=== PATIENT | male | born 1940 | race Caucasian/White ===

== ENCOUNTER → 2021-11-30 10:18 | Outpatient (CLI) | payer MEDICARE, OTHER, SELFPAY ==
--- NOTE | 2021-11-30 10:21 | DI.RAD.S_ITS ---
PROCEDURE: XR LUMBAR SPINE 2-3V INDICATIONS: chronic low back pain with right leg radiation TECHNIQUE: 3 views of the lumbar spine were acquired. COMPARISON: None. FINDINGS: Bones: 5 bmx-hpb-odlqujw vertebrae are present. There is mild rightward curvature of thoracolumbar spine centered at L2 level. Degenerative endplate changes and loss of disc height throughout lumbar spine is seen.. No vertebral body compression fractures. No suspicious bony lesions. Soft tissues: Overlying bowel gas pattern is normal. No suspicious soft tissue calcifications. IMPRESSION: Degenerative disc disease throughout lumbar spine. Mild scoliosis as above. No acute compression fracture or spondylolisthesis. Dictated by: Solis Mullins M.D. on 11/30/2021 at 12:47 Approved by: Solis Mullins M.D. on 11/30/2021 at 12:50
[2021-11-30 11:56] LABS: Creatinine Urine Random 46.5 mg/dL
[2021-11-30 12:01] LABS: Microalbumi Creatinin Ratio Ur 12.9 ug/mg CR (<30); Microalbumin Urine Random 0.6 mg/dL (0-1.6)
[2021-11-30 12:07] LABS: Add Manual Diff / Slide Review NO; Basophils Absolute Auto 0 /uL (0-100); Basophils Percent Auto 0.6 % (0-2); Eosinophils Absolute Auto 100 /uL (0-450); Eosinophils Percent Auto 1.4 % (2-4); Hematocrit 43.7 % (41-53); Hemoglobin 14.9 g/dL (13.5-17.5); Lymphocytes Absolute Auto 900 /uL (1100-4500); Lymphocytes Percent Auto 20.3 % (25-40); Mean Corpuscular HGB Conc 34.1 % (30-36); Mean Corpuscular Hemoglobin 30.6 PG (26-34); Mean Corpuscular Volume 89.6 fL (80-100); Monocytes Absolute Auto 300 /uL (0-900); Monocytes Percent Auto 7.4 % (3-14); Neutrophils Absolute Auto 3200 /uL (1500-7000); Neutrophils Percent Auto 70.3 % (50-75); Platelet Count 218 X10^3/uL (150-400); Red Blood Cell Count 4.88 X10^6/uL (4.5-5.9); Red Cell Distribution Width 13.8 % (11.6-14.8); White Blood Cell Count 4.6 X10^3/uL (4.5-11.0)
[2021-11-30 12:26] LABS: Alanine Aminotransferase 21 IU/L (<50); Albumin 4.3 g/dL (3.5-5.0); Albumin Globulin Ratio 1.7 (1.0-2.8); Alkaline Phosphatase 51 U/L (38-126); Aspartate Aminotransferase 27 IU/L (17-59); BUN Creatinine Ratio 16.5 (6-22); Bilirubin Total 0.7 mg/dL (0.2-1.3); Blood Urea Nitrogen 16 mg/dL (9-20); Calcium 8.9 mg/dL (8.4-10.2); Carbon Dioxide 29 mmol/L (22-32); Chloride 104 mmol/L (98-107); Cholesterol 141 mg/dL (140-199); Estimated Glomerular Filt Rate > 60 mL/min (>60); Globulin 2.6 g/dL (1.7-4.1); Glucose 89 mg/dL (80-110); HDL Cholesterol 73 mg/dL (40-60); HEMOLYSIS < 15 (0-50); LDL Cholesterol Calculated 58 mg/dL (<100); Potassium 4.2 mmol/L (3.4-5.1); Sodium 138 mmol/L (137-145); Total Protein 6.9 g/dL (6.3-8.2); Triglycerides 48 mg/dL (35-150)
[2021-11-30 12:54] LABS: Prostate Specific Antigen Scrn 0.763 ng/mL (0.1-4.0)
[2021-11-30 12:55] LABS: TSH w/ Reflex to FT4 2.06 uIU/mL (0.47-4.68)
== END ==
PROVIDERS: PCP Family Medicine; Referring Provider Family Medicine; Visit Provider Family Medicine
DX: I10 Essential (primary) hypertension (principal); Z12.5 Encounter for screening for malignant neoplasm of prostate; F41.9 Anxiety disorder, unspecified; G89.29 Other chronic pain; M54.9 Dorsalgia, unspecified; N40.1 Benign prostatic hyperplasia with lower urinary tract symptoms; M51.36 Other intervertebral disc degeneration, lumbar region; M41.9 Scoliosis, unspecified
CPT/HCPCS: 36415; 72100; 80053; 80061; 82043; 82570; 84443; 85025; G0103

== ENCOUNTER → 2023-01-10 08:23 | Outpatient (CLI) | payer MEDICARE, OTHER, SELFPAY ==
--- NOTE | 2023-01-10 08:26 | DI.CT.S_ITS ---
PROCEDURE: CT ANGIO HEAD AND NECK INDICATIONS: possible retinal bleed TECHNIQUE: Pre-contrast 4.5 mm thick sections acquired from the foramen magnum to the vertex. After the administration of intravenous contrast, 1 mm thick sections acquired from the aortic arch through the [place]. Post-contrast 4.5 mm thick sections then re-acquired from the foramen magnum to the vertex. 3-dimensional gyriifi-qigoiyvde-grrdjtelvq (MIP) and/or volume rendering reformats were acquired of the central intracranial vasculature and neck separately. For radiation dose reduction, the following was used: automated exposure control, adjustment of mA and/or kV according to patient size. COMPARISON: None. FINDINGS: Image quality: Mild streak artifact can be seen through the skull base. BRAIN: CSF spaces: Ventricles are normal in size and shape. Basal cisterns are patent. No extra-axial fluid collections. Brain: No midline shift. No intracranial bleeds or masses. Díaz-white matter interface appears intact. Skull and face: In this patient with this given history, scrutiny is given to the orbits. No marques orbital abnormality can be seen on these images. No findings of orbital AVM can be seen. Calvarium and facial bones appear intact, without suspicious lesions. Sinuses: Sinuses and mastoids are clear. HEAD CT ANGIOGRAPHY: Anterior circulation: Intracranial internal carotid arteries are normal in size and flow. The flow within the paired anterior cerebral arteries is normal and symmetric. The flow within the middle cerebral arteries is normal and symmetric. The anterior communicating artery is seen. No aneurysms are seen. Posterior circulation: Visualized portions of the vertebral arteries demonstrate normal caliber, and join to form a normal appearing basilar artery. Flow within the posterior cerebral arteries is normal and symmetric. No aneurysms are seen. NECK CT ANGIOGRAPHY: Carotid system: The great vessels demonstrate a conventional anatomy as they arise from the aortic arch. The origins of the common carotid arteries appear patent. The common carotid arteries demonstrate normal caliber and courses. The bifurcation regions are both widely patent. The internal carotid arteries demonstrate normal calibers and courses. Posterior circulation: The origins of the vertebral arteries both appear widely patent. The more superior extracranial portions of both vertebral arteries also demonstrate normal courses and calibers. They join to form a normal appearing basilar artery. Soft tissues: Visualized neck soft tissues demonstrate no suspicious abnormalities. Bones: No suspicious bony lesions. Visualized cervical spine appears normally aligned. Moderate lower cervical spine degenerative changes are seen. IMPRESSION: No imaging explanation is found for this patient's presenting symptoms. Any quantitative measurements of stenosis were performed using NASCET criteria. Dictated by: Ranjeet Angel M.D. on 01/10/2023 at 10:06 Approved by: Ranjeet Angel M.D. on 01/10/2023 at 10:08
[2023-01-10 09:31] LABS: Add Manual Diff / Slide Review NO; Basophils Absolute Auto 0 /uL (0-100); Basophils Percent Auto 0.5 % (0-2); Eosinophils Absolute Auto 100 /uL (0-450); Eosinophils Percent Auto 2.3 % (2-4); Hemoglobin 14.4 g/dL (13.5-17.5); Lymphocytes Absolute Auto 900 /uL (1100-4500); Lymphocytes Percent Auto 17.6 % (25-40); Mean Corpuscular HGB Conc 34.3 % (30-36); Mean Corpuscular Hemoglobin 30.6 PG (26-34); Mean Corpuscular Volume 89.3 fL (80-100); Monocytes Absolute Auto 400 /uL (0-900); Monocytes Percent Auto 8.3 % (3-14); Neutrophils Absolute Auto 3700 /uL (1500-7000); Neutrophils Percent Auto 71.3 % (50-75); Platelet Count 217 X10^3/uL (150-400); Red Blood Cell Count 4.71 X10^6/uL (4.5-5.9); Red Cell Distribution Width 13.8 % (11.6-14.8); White Blood Cell Count 5.2 X10^3/uL (4.5-11.0)
[2023-01-10 09:36] LABS: Alanine Aminotransferase 26 IU/L (<50); Albumin 4.1 g/dL (3.5-5.0); Albumin Globulin Ratio 1.5 (1.0-2.8); Alkaline Phosphatase 49 U/L (38-126); Aspartate Aminotransferase 28 IU/L (17-59); BUN Creatinine Ratio 21.3 (6-22); Bilirubin Total 0.6 mg/dL (0.2-1.3); Blood Urea Nitrogen 20 mg/dL (9-20); Calcium 9.1 mg/dL (8.4-10.2); Carbon Dioxide 30 mmol/L (22-32); Chloride 102 mmol/L (98-107); Cholesterol 141 mg/dL (140-199); Estimated Glomerular Filt Rate > 60 mL/min (>60); Globulin 2.7 g/dL (1.7-4.1); Glucose 89 mg/dL (80-110); HDL Cholesterol 69 mg/dL (40-60); HEMOLYSIS < 15 (0-50); LDL Cholesterol Calculated 62 mg/dL (<100); Potassium 4.3 mmol/L (3.4-5.1); Sodium 138 mmol/L (137-145); Total Protein 6.8 g/dL (6.3-8.2); Triglycerides 51 mg/dL (35-150)
[2023-01-10 10:06] LABS: Prostate Specific Antigen Scrn 1.06 ng/mL (0.1-4.0)
== END ==
PROVIDERS: PCP Family Medicine; Referring Provider Family Medicine; Visit Provider Family Medicine
DX: H35.60 Retinal hemorrhage, unspecified eye (principal); H35.30 Unspecified macular degeneration; I10 Essential (primary) hypertension; N40.0 Benign prostatic hyperplasia without lower urinary tract symptoms; Z12.5 Encounter for screening for malignant neoplasm of prostate; F41.9 Anxiety disorder, unspecified; M54.9 Dorsalgia, unspecified
CPT/HCPCS: 36415; 70496; 70498; 80053; 80061; 85025; G0103; Q9967

== ENCOUNTER → 2023-08-10 09:29 | Outpatient (CLI) | payer MEDICARE, OTHER, SELFPAY ==
[2023-08-10 10:42] LABS: Add Manual Diff / Slide Review NO; Basophils Absolute Auto 0 /uL (0-100); Basophils Percent Auto 0.4 % (0-2); Eosinophils Absolute Auto 100 /uL (0-450); Eosinophils Percent Auto 1.8 % (2-4); Hemoglobin 12.9 g/dL (13.5-17.5); Lymphocytes Absolute Auto 700 /uL (1100-4500); Lymphocytes Percent Auto 10.3 % (25-40); Mean Corpuscular HGB Conc 33.9 % (30-36); Mean Corpuscular Hemoglobin 29.8 PG (26-34); Mean Corpuscular Volume 87.8 fL (80-100); Monocytes Absolute Auto 800 /uL (0-900); Monocytes Percent Auto 11.6 % (3-14); Neutrophils Absolute Auto 5500 /uL (1500-7000); Neutrophils Percent Auto 75.9 % (50-75); Platelet Count 372 X10^3/uL (150-400); Red Blood Cell Count 4.33 X10^6/uL (4.5-5.9); Red Cell Distribution Width 13.5 % (11.6-14.8); White Blood Cell Count 7.2 X10^3/uL (4.5-11.0)
[2023-08-10 10:50] LABS: Alanine Aminotransferase 62 IU/L (<50); Albumin 3.2 g/dL (3.5-5.0); Alkaline Phosphatase 79 U/L (38-126); Aspartate Aminotransferase 63 IU/L (17-59); BUN Creatinine Ratio 18.1 (6-22); Bilirubin Total 0.6 mg/dL (0.2-1.3); Blood Urea Nitrogen 17 mg/dL (9-20); Calcium 8.7 mg/dL (8.4-10.2); Carbon Dioxide 29 mmol/L (22-32); Chloride 102 mmol/L (98-107); Estimated Glomerular Filt Rate > 60 mL/min (>60); Globulin 3.1 g/dL (1.7-4.1); Glucose 97 mg/dL (80-110); HEMOLYSIS < 15 (0-50); Lipase 49 U/L (23-300); Potassium 4.3 mmol/L (3.4-5.1); Sodium 139 mmol/L (137-145); Total Protein 6.3 g/dL (6.3-8.2)
[2023-08-10 11:19] LABS: TSH w/ Reflex to FT4 1.78 uIU/mL (0.47-4.68)
[2023-08-10 11:24] LABS: Erythrocyte Sedimentation Rate 63 MM/HR (0-15)
[2023-08-15 18:21] LABS: CCP Antibodies IgG/IgA 37 units (0-19)
[2023-08-15 18:21] LABS: ANA Screen, IFA Negative (.)
== END ==
PROVIDERS: PCP Family Medicine; Referring Provider Family Medicine; Visit Provider Family Medicine
DX: M19.011 Primary osteoarthritis, right shoulder (principal); M54.2 Cervicalgia; F41.9 Anxiety disorder, unspecified; G89.29 Other chronic pain; I10 Essential (primary) hypertension; M54.9 Dorsalgia, unspecified; R60.0 Localized edema; D64.9 Anemia, unspecified; R74.8 Abnormal levels of other serum enzymes
CPT/HCPCS: 36415; 80053; 83690; 84443; 85025; 85651; 86038; 86140; 86200; 86430

== ENCOUNTER → 2023-08-17 11:15 | Outpatient (CLI) | payer MEDICARE, OTHER, SELFPAY ==
[2023-08-17 11:44] LABS: Add Manual Diff / Slide Review NO; Basophils Absolute Auto 100 /uL (0-100); Basophils Percent Auto 0.9 % (0-2); Eosinophils Absolute Auto 100 /uL (0-450); Eosinophils Percent Auto 1.3 % (2-4); Hematocrit 36.4 % (41-53); Hemoglobin 12.3 g/dL (13.5-17.5); Lymphocytes Absolute Auto 800 /uL (1100-4500); Lymphocytes Percent Auto 9.1 % (25-40); Mean Corpuscular HGB Conc 33.7 % (30-36); Mean Corpuscular Hemoglobin 29.1 PG (26-34); Mean Corpuscular Volume 86.2 fL (80-100); Monocytes Absolute Auto 1000 /uL (0-900); Monocytes Percent Auto 10.8 % (3-14); Neutrophils Absolute Auto 7100 /uL (1500-7000); Neutrophils Percent Auto 77.9 % (50-75); Platelet Count 434 X10^3/uL (150-400); Red Blood Cell Count 4.22 X10^6/uL (4.5-5.9); Red Cell Distribution Width 13.9 % (11.6-14.8); White Blood Cell Count 9.1 X10^3/uL (4.5-11.0)
[2023-08-17 11:48] LABS: Alanine Aminotransferase 196 IU/L (<50); Albumin 3.3 g/dL (3.5-5.0); Albumin Globulin Ratio 0.9 (1.0-2.8); Alkaline Phosphatase 126 U/L (38-126); Aspartate Aminotransferase 155 IU/L (17-59); BUN Creatinine Ratio 27.6 (6-22); Bilirubin Total 0.6 mg/dL (0.2-1.3); Blood Urea Nitrogen 24 mg/dL (9-20); Calcium 8.9 mg/dL (8.4-10.2); Carbon Dioxide 26 mmol/L (22-32); Chloride 105 mmol/L (98-107); Estimated Glomerular Filt Rate > 60 mL/min (>60); Globulin 3.6 g/dL (1.7-4.1); Glucose 104 mg/dL (80-110); HEMOLYSIS < 15 (0-50); Lactate Dehydrogenase 215 U/L (120-246); Potassium 4.2 mmol/L (3.4-5.1); Sodium 139 mmol/L (137-145); Total Protein 6.9 g/dL (6.3-8.2)
[2023-08-17 12:02] LABS: C-Reactive Protein Quant 19.5 mg/dL (<1.0)
[2023-08-17 12:11] LABS: Erythrocyte Sedimentation Rate 55 MM/HR (0-15)
[2023-08-17 14:51] LABS: Ferritin 522 ng/mL (18-464)
== END ==
LOC: RAD 11:16 → LAB 11:22
PROVIDERS: PCP Family Medicine; Referring Provider Family Medicine; Visit Provider Family Medicine
DX: I10 Essential (primary) hypertension (principal); R74.8 Abnormal levels of other serum enzymes; R60.0 Localized edema; R26.89 Other abnormalities of gait and mobility; G45.9 Transient cerebral ischemic attack, unspecified; D64.9 Anemia, unspecified; M06.9 Rheumatoid arthritis, unspecified
CPT/HCPCS: 36415; 80053; 82728; 83615; 85025; 85651; 86140

== ENCOUNTER → 2023-08-17 14:11 | Outpatient (CLI) | payer MEDICARE, OTHER, SELFPAY ==
--- NOTE | 2023-08-17 14:14 | DI.CT.S_ITS ---
PROCEDURE: CT ABDOMEN WWO PELVIS W INDICATIONS: elevated liver enzymes, inflammatory markers TECHNIQUE: After the administration of oral contrast, 5 mm thick sections acquired from the diaphragms to the iliac crests. After the administration of intravenous contrast, 5 mm thick sections acquired from the diaphragms to the symphysis. 5 mm thick coronal and sagittal reformats were acquired. For radiation dose reduction, the following was used: automated exposure control, adjustment of mA and/or kV according to patient size. COMPARISON: None. FINDINGS: Image quality: Diagnostic. Lower Chest: No significant findings. ABDOMEN: Liver: No solid mass. Diffuse fatty infiltration of the liver. Gallbladder: No radiopaque gallstones or wall thickening. Biliary ducts: No biliary dilation. Pancreas: No ductal dilation. Spleen: Size is within normal limits. Adrenal Glands: No adrenal nodules. Kidneys and Ureters: No hydronephrosis. No solid mass. No complex renal cystic lesion which requires follow up. Large, exophytic, simple left renal cyst which requires no additional imaging. Stomach and Bowel: Small hiatal hernia. Normal colonic caliber, without significant wall thickening. Colonic diverticuli. Mild inflammatory stranding noted adjacent to diverticuli in the distal left colon. The appendix is normal. Peritoneum: No abnormal intraperitoneal fluid. No free air. Ventral Wall: No significant ventral hernia. Abdominal Nodes: No retroperitoneal or mesenteric adenopathy by size criteria. Vessels: Aorta and inferior vena cava are normal in size. Scattered atherosclerotic calcifications involving the abdominal and pelvic vasculature. PELVIS: Pelvic Organs: Unremarkable. Bladder: No bladder wall thickening, accounting for underdistention. Pelvic Nodes: No enlarged lymph nodes. Miscellaneous: No inguinal hernias are seen. Bones: No aggressive osseous abnormality. Spine degenerative disc disease and facet arthropathy. IMPRESSION: No hepatic mass. Hepatic steatosis. Mild, distal left colon uncomplicated diverticulitis. Dictated by: Bettina Davies MD, PhD on 08/17/2023 at 14:53 Approved by: Bettina Davies MD, PhD on 08/17/2023 at 15:00
[2023-08-17 15:52] LABS: INR 1.2 (0.9-1.3)
[2023-08-17 15:58] LABS: HEMOLYSIS < 15 (0-50); Iron 35 ug/dL (49-181)
[2023-08-17 16:10] LABS: Percent Iron Saturation 25 % (20-50); Total Iron Binding Capacity 141 ug/dL (261-462); Transferrin 108 mg/dL (206-381)
[2023-08-17 18:40] LABS: Hepatitis B Surface Antigen NEGATIVE s/c (NEGATIVE)
[2023-08-17 18:58] LABS: Hep C Virus Ab w/Reflex Quant NEGATIVE s/c (NEGATIVE)
[2023-08-18 04:09] LABS: Ceruloplasmin 31.7 mg/dL (16.0-31.0)
[2023-08-18 08:08] LABS: Alpha Fetoprotein 1.8 ng/mL (0.0-6.4)
[2023-08-19 05:59] LABS: Hepatitis B Surf Ab Qualitativ Non Reactive (.)
[2023-08-19 18:48] LABS: Smooth Muscle Antibody 13 Units (0-19)
== END ==
PROVIDERS: PCP Family Medicine; Referring Provider Family Medicine; Visit Provider Family Medicine
DX: K57.32 Diverticulitis of large intestine without perforation or abscess without bleeding (principal); K76.0 Fatty (change of) liver, not elsewhere classified; K44.9 Diaphragmatic hernia without obstruction or gangrene; R74.8 Abnormal levels of other serum enzymes; G45.9 Transient cerebral ischemic attack, unspecified; R60.0 Localized edema; M06.9 Rheumatoid arthritis, unspecified; D64.9 Anemia, unspecified; I10 Essential (primary) hypertension; R26.89 Other abnormalities of gait and mobility
CPT/HCPCS: 36415; 74178; 80053; 82105; 82390; 82728; 83540; 83550; 83615; 85025; 85610; 85651; 86140; 86706; 86803; 87340

== ENCOUNTER 2023-08-17 17:33 | Emergency (ER) | payer MEDICARE, OTHER, SELFPAY ==
[2023-08-17 18:07] VITALS: BP 197/80; PULSE 76; RESP 20; TEMP 37; O2SAT 95; BMI 25.4
--- NOTE | 2023-08-17 19:15 | ED_ITS ---
HPI - Recheck/Abnormal Lab/Rx General Chief Complaint: Recheck/Abnormal Lab/Rx Stated Complaint: sent by Dr Reid Time Seen by Provider: 08/17/23 19:08 Source: patient Mode of arrival: Ambulatory History of Present Illness HPI narrative: You 3-year-old gentleman with arthritis pain, anemia in the middle of rheumatologic as well as hematologic workup. LFTs have been increasing slightly in CT scan of the abdomen was ordered today. He was instructed by his physician's office to come to the emergency department for further evaluation. Has no specific complaints or concerns at this time. He states that his lower extremity edema has been intermittently painful he is pleased with current outpatient plan. He complains of no abdominal pain, diarrhea or bloody stool. He notes no fevers Related Data Home Medications Medication Instructions Recorded Confirmed aspirin 81 mg tablet,delayed 81 mg PO DAILY 12/13/21 08/17/23 release (Adult Aspirin Regimen) calcium carbonate 500 mg calcium 500 mg PO DAILY 12/13/21 08/17/23 (1,250 mg) chewable tablet (Calcium 500) cholecalciferol (vitamin D3) 25 25 mcg PO DAILY 12/13/21 08/17/23 mcg (1,000 unit) tablet esomeprazole magnesium 20 mg 20 mg PO DAILY 12/13/21 08/17/23 capsule,delayed release zinc 50 mg tablet 50 mg PO DAILY 12/13/21 08/17/23 coenzyme [id number] E 100 mg-100 cap PO 01/31/22 08/17/23 unit capsule vit cap PO 12/14/22 08/17/23 C,E,zinc,Bs-unnkf-1-lutein-zeaxanthin 250 mg-2.5 mg-0.5 mg capsule Previous Rx's Medication Instructions Recorded lidocaine 5 % topical patch 1 patch topical DAILY #15 ea 08/04/22 (Lidoderm) simvastatin 40 mg tablet 40 mg PO BEDTIME #90 tabs 11/03/22 furosemide 20 mg tablet (Lasix) 20 mg PO DAILY #60 tabs 08/17/23 potassium chloride 20 mEq oral 20 meq PO DAILY #100 ea 08/17/23 packet prednisone 20 mg tablet 20 mg PO DAILY #60 tabs 08/17/23 Allergies Allergy/AdvReac Type Severity Reaction Status Date / Time No Known Drug Allergies Allergy Verified 08/17/23 13:09 Review of Systems Review of Systems Narrative: Pertinent positive and negative findings as per HPI Patient History Medical History Anemia Elevated liver enzymes Gout (~2016) Allergies (~1999) Depression (~2013) Migraines Shoulder pain (~2005) Positive PPD Mumps Measles Chicken pox Cataracts, bilateral (~2015) Gynecomastia Sleep disorder Chronic back pain TIA (transient ischemic attack) (~2004) Anxiety Hypertension BPH (benign prostatic hyperplasia) Surgical History Anesthesia History of cataract removal with insertion of prosthetic lens (~2016) History of colonoscopy (~2016) Family History Father Stroke Mother Cancer Social History Smoking Status: Never smoker Smoking Status: Never smoker Exam Initial Vital Signs Initial Vital Signs: Vital Signs Temperature 98.6 F 08/17/23 18:07 Pulse Rate 76 08/17/23 18:07 Respiratory Rate 20 08/17/23 18:07 Blood Pressure 197/80 H 08/17/23 18:07 Pulse Oximetry 95 08/17/23 18:07 Oxygen Delivery Method Room Air 08/17/23 18:07 General: Healthy appearing, in no acute distress. Able to give a complete and coherent history. Well-nourished well-developed HEENT: Moist mucous membranes, normal sclera with reactive pupils, Respiratory: Lungs are clear to auscultation, no wheezing no rales no rhonchi. Full and symmetrical air movement Cardiac: Regular rate and rhythm no murmurs no bruits Abdomen: Soft, no hepatomegaly, nontender, and specifically no tenderness in the left lower quadrant to suggest developing diverticulitis. He has no flank pain Neurologic: Grossly neurologically intact with no obvious asymmetries or abnormalities Extremities: No trauma, bilateral lower extremity edema with chronic venous stasis changes Psych: Cooperative, appropriate insight and affect Course Vital Signs Vital signs: Vital Signs - 8 hr 08/17/23 18:07 Temperature 98.6 F Pulse Rate 76 Respiratory Rate 20 Blood Pressure 197/80 H Pulse Oximetry 95 Oxygen Delivery Method Room Air MDM - Recheck/Abnormal Lab/Rx Imaging Data CT scan - abdomen/pelvis: Radiologist's Impression: PROCEDURE: CT ABDOMEN WWO PELVIS W INDICATIONS: elevated liver enzymes, inflammatory markers TECHNIQUE: After the administration of oral contrast, 5 mm thick sections acquired from the diaphragms to the iliac crests. After the administration of intravenous contrast, 5 mm thick sections acquired from the diaphragms to the symphysis. 5 mm thick coronal and sagittal reformats were acquired. For radiation dose reduction, the following was used: automated exposure control, adjustment of mA and/or kV according to patient size. COMPARISON: None. FINDINGS: Image quality: Diagnostic. Lower Chest: No significant findings. ABDOMEN: Liver: No solid mass. Diffuse fatty infiltration of the liver. Gallbladder: No radiopaque gallstones or wall thickening. Biliary ducts: No biliary dilation. Pancreas: No ductal dilation. Spleen: Size is within normal limits. Adrenal Glands: No adrenal nodules. Kidneys and Ureters: No hydronephrosis. No solid mass. No complex renal cystic lesion which requires follow up. Large, exophytic, simple left renal cyst which requires no additional imaging. Stomach and Bowel: Small hiatal hernia. Normal colonic caliber, without significant wall thickening. Colonic diverticuli. Mild inflammatory stranding noted adjacent to diverticuli in the distal left colon. The appendix is normal. Peritoneum: No abnormal intraperitoneal fluid. No free air. Ventral Wall: No significant ventral hernia. Abdominal Nodes: No retroperitoneal or mesenteric adenopathy by size criteria. Vessels: Aorta and inferior vena cava are normal in size. Scattered atherosclerotic calcifications involving the abdominal and pelvic vasculature. PELVIS: Pelvic Organs: Unremarkable. Bladder: No bladder wall thickening, accounting for underdistention. Pelvic Nodes: No enlarged lymph nodes. Miscellaneous: No inguinal hernias are seen. Bones: No aggressive osseous abnormality. Spine degenerative disc disease and facet arthropathy. IMPRESSION: No hepatic mass. Hepatic steatosis. Mild, distal left colon uncomplicated diverticulitis. Dictated by: Bettina Davies MD, PhD on 08/17/2023 at 14:53 MDM Narrative Medical decision making narrative: CC: Called by his nurse and told to come to the emergency department for abnormal lab work Complicating co-morbidities: Increasing lower extremity edema, workup for rheumatologic abnormalities, gradually increasing liver function studies, hypertension and anxiety Data collected from: patient, Social determinants of health that may influence the patients condition: Medical records reviewed: Primary care note from today quite detailed. Reviewed along with outpatient plan. According to this note it looks like the patient was referred to the emergency department for CT scan of the abdomen with concerns for liver failure Differential considered: Fatty liver, adverse medication reaction, acute phase reactants, congestive heart failure, intra-abdominal mass Exam documented above, pertinent findings include: 83-year-old gentleman who is delightful and somewhat puzzled as to why he is in the emergency department. His exam is entirely benign including abdominal exam. There is no tenderness whatsoever in his left lower quadrant. Lab Test results independently reviewed as above. Pertinent findings: CBC shows white count at 9.1, platelets slightly elevated at 434. Mild anemia with hemoglobin at 12.3 and 36.4, drifting down without evidence of acute bleeding. There was mention of a possible GI bleed while he was in [place] PTT is minimally elevated at 14 with normal INR Chemistries show normal renal function and electrolytes. Liver studies show slight increase over the last week ALT 63-155, ALT 262-196. Normal bilirubin and normal alk-phos and lactic dehydrogenase Iron TIBC and transferrin levels are all low. Ferritin level itself is elevated Imaging studies independently reviewed: CT scan suggests hepatic steatosis with no acute liver abnormalities. There is a suggestion of developing diverticulitis. There is absolutely no clinical sam elation with the diverticulitis concern on CT scan Treatments: Because patient has been in the emergency department he has not going to be able to supervisor opening and picking his prednisone or Lasix. We will give him his dose of prednisone this evening. He is also having significant pain after his exceptionally long day today. He has given a Percocet with for Percocet to take home for pain control. We did discuss constipation as a Side effect. Discussion: 83-year-old gentleman with increasing LFTs, essentially benign CT scan of the abdomen and benign physical exam aside from lower extremity edema. Has extensive and very appropriate outpatient workup already initiated and access to appropriate primary care. At this point there is no indication for hospitalization or additional imaging studies. Reassurance is given and patient is safe for discharge Discharge Plan Departure Patient Disposition: Home Clinical Impression: Elevated LFTs, Elevated blood pressure reading Activity Restrictions/Additional Instructions: Thank you for following instructions and coming in today for further evaluation Your lab work does show an increase in liver function studies however does not look like you have acute liver failure, acute kidney failure or any type of significant mass or infection. Your doctor has appropriate outpatient follow-up planned. He has given you a prescription for prednisone to help with the arthritis pain (this was the other P drug we did not consider;) as well as Lasix for the lower extremity edema. It is safe for you to go home and continue with outpatient follow-up plans. Prescriptions: No Action lidocaine [Lidoderm] 5 % adhesive patch,medicated 1 patch topical DAILY Qty: 15 0RF Rx Instructions: leave on most painful area for up to 12 hrs simvastatin 40 mg tablet 40 mg PO BEDTIME Qty: 90 3RF calcium carbonate [Calcium 500] 500 mg calcium (1,250 mg) tablet,chewable 500 mg PO DAILY esomeprazole magnesium 20 mg capsule,delayed release(DR/EC) 20 mg PO DAILY zinc 50 mg tablet 50 mg PO DAILY cholecalciferol (vitamin D3) 25 mcg (1,000 unit) tablet 25 mcg PO DAILY aspirin [Adult Aspirin Regimen] 81 mg tablet,delayed release (DR/EC) 81 mg PO DAILY prednisone 20 mg tablet 20 mg PO DAILY Qty: 60 0RF furosemide [Lasix] 20 mg tablet 20 mg PO DAILY Qty: 60 0RF potassium chloride 20 mEq packet 20 meq PO DAILY Qty: 100 0RF coenzyme [id number]-[id number] E 100-100 mg-unit capsule PO vit C,E,Zn,Nc-jiwhe8-iem-zeax 250-2.5-0.5 mg capsule PO Referrals: Anderson Reid MD [Primary Care Provider] - Stand Alone Forms: Patient Portal/API
[2023-08-17 20:04] VITALS: BP 233/105; PULSE 82; RESP 18; O2SAT 96
--- NOTE | 2023-08-17 20:05 | PC.NURSE ---
THREAD LASTER note: 2002 took patient's blood pressure, was elevated. VICKY ortega
--- NOTE | 2023-08-17 20:05 | PC.NURSE ---
Notified provider of elevated pressure at triage and repeat just now. Patient not on home medications for hypertension and had normotensive pressure at appt today.
[2023-08-17] MEDS: predniSONE 20 MG TABLET PO (20:16)
[2023-08-17] MEDS: OXYCODONE/ACETAMINOPHEN 5/325 TABLET 1 TAB PO (20:16)
[2023-08-17] MEDS: OXYCODONE/APAP 5/325 PREPACK 1 BOTTLE MISC (20:17)
[2023-08-17 20:45] VITALS: BP 148/88
== END 2023-08-17 20:45 | disposition home or self-care (01) ==
PROVIDERS: Emergency Provider Emergency Medicine; PCP Family Medicine
DX: R79.89 Other specified abnormal findings of blood chemistry (principal); R03.0 Elevated blood-pressure reading, without diagnosis of hypertension; K57.32 Diverticulitis of large intestine without perforation or abscess without bleeding; K76.0 Fatty (change of) liver, not elsewhere classified; K44.9 Diaphragmatic hernia without obstruction or gangrene; R74.8 Abnormal levels of other serum enzymes; R60.0 Localized edema; R26.89 Other abnormalities of gait and mobility; G45.9 Transient cerebral ischemic attack, unspecified; D64.9 Anemia, unspecified; M06.9 Rheumatoid arthritis, unspecified; I10 Essential (primary) hypertension
CPT/HCPCS: 36415; 74178; 80053; 82105; 82390; 82728; 83540; 83550; 83615; 85025; 85610; 85651; 86140; 86706; 86803; 87340; 99283

== ENCOUNTER → 2023-08-24 09:04 | Outpatient (CLI) | payer MEDICARE, OTHER, SELFPAY ==
[2023-08-24 09:51] LABS: Alanine Aminotransferase 74 IU/L (<50); Albumin 3.5 g/dL (3.5-5.0); Alkaline Phosphatase 93 U/L (38-126); Aspartate Aminotransferase 34 IU/L (17-59); BUN Creatinine Ratio 24.7 (6-22); Bilirubin Total 0.6 mg/dL (0.2-1.3); Blood Urea Nitrogen 24 mg/dL (9-20); Carbon Dioxide 29 mmol/L (22-32); Chloride 101 mmol/L (98-107); Estimated Glomerular Filt Rate > 60 mL/min (>60); Globulin 3.6 g/dL (1.7-4.1); Glucose 97 mg/dL (80-110); HEMOLYSIS < 15 (0-50); Sodium 137 mmol/L (137-145); Total Protein 7.1 g/dL (6.3-8.2)
== END ==
PROVIDERS: PCP Family Medicine; Referring Provider Family Medicine; Visit Provider Family Medicine
DX: R79.89 Other specified abnormal findings of blood chemistry (principal)
CPT/HCPCS: 36415; 80053

== ENCOUNTER → 2024-02-12 10:04 | Outpatient (CLI) | payer MEDICARE, OTHER, SELFPAY ==
[2024-02-12 11:04] LABS: Add Manual Diff / Slide Review NO; Basophils Absolute Auto 0 /uL (0-100); Basophils Percent Auto 0.7 % (0-2); Eosinophils Absolute Auto 400 /uL (0-450); Eosinophils Percent Auto 7.6 % (2-4); Hemoglobin 14.3 g/dL (13.5-17.5); Lymphocytes Absolute Auto 1100 /uL (1100-4500); Lymphocytes Percent Auto 20.9 % (25-40); Mean Corpuscular HGB Conc 33.4 % (30-36); Mean Corpuscular Hemoglobin 29.8 PG (26-34); Mean Corpuscular Volume 89.3 fL (80-100); Monocytes Absolute Auto 400 /uL (0-900); Monocytes Percent Auto 8.7 % (3-14); Neutrophils Absolute Auto 3200 /uL (1500-7000); Neutrophils Percent Auto 62.1 % (50-75); Platelet Count 221 X10^3/uL (150-400); Red Blood Cell Count 4.82 X10^6/uL (4.5-5.9); Red Cell Distribution Width 14.8 % (11.6-14.8); White Blood Cell Count 5.2 X10^3/uL (4.5-11.0)
[2024-02-12 11:29] LABS: Alanine Aminotransferase 26 IU/L (<50); Albumin 4.1 g/dL (3.5-5.0); Albumin Globulin Ratio 1.7 (1.0-2.8); Alkaline Phosphatase 55 U/L (38-126); Aspartate Aminotransferase 33 IU/L (17-59); BUN Creatinine Ratio 17.9 (6-22); Bilirubin Total 0.6 mg/dL (0.2-1.3); Blood Urea Nitrogen 19 mg/dL (9-20); Calcium 9.3 mg/dL (8.4-10.2); Carbon Dioxide 28 mmol/L (22-32); Chloride 106 mmol/L (98-107); Estimated Glomerular Filt Rate > 60 mL/min (>60); Globulin 2.4 g/dL (1.7-4.1); Glucose 86 mg/dL (80-110); HEMOLYSIS < 15 (0-50); Potassium 4.4 mmol/L (3.4-5.1); Sodium 140 mmol/L (137-145); Total Protein 6.5 g/dL (6.3-8.2); Triglycerides 46 mg/dL (35-150)
[2024-02-12 11:30] LABS: Cholesterol 149 mg/dL (140-199); HDL Cholesterol 77 mg/dL (40-60); LDL Cholesterol Calculated 63 mg/dL (<100)
[2024-02-12 11:46] LABS: TSH w/ Reflex to FT4 2.36 uIU/mL (0.47-4.68)
[2024-02-12 11:58] LABS: Prostate Specific Antigen Scrn 0.664 ng/mL (0.1-4.0)
[2024-02-13 03:39] LABS: Apolipoprotein B 62 mg/dL (<90)
== END ==
PROVIDERS: PCP Family Medicine; Referring Provider Family Medicine; Visit Provider Family Medicine
DX: D64.9 Anemia, unspecified (principal); R74.8 Abnormal levels of other serum enzymes; Z12.5 Encounter for screening for malignant neoplasm of prostate; I10 Essential (primary) hypertension; F41.9 Anxiety disorder, unspecified; M54.2 Cervicalgia; G89.29 Other chronic pain
CPT/HCPCS: 36415; 80053; 80061; 82172; 84443; 85025; G0103

== ENCOUNTER → 2024-02-26 10:39 | Outpatient (CLI) | payer MEDICARE, OTHER, SELFPAY ==
--- NOTE | 2024-02-26 | DI.RAD.S_ITS ---
PROCEDURE: XR DEXA AXIAL SKELETON INDICATIONS: Age-related osteoporosis without current pathological fractu COMPARISON: None. FINDINGS: Lumbar Spine: Bone mineral density 0.931 g/cm2, T score -1.1, osteopenia. Left Hip: Bone mineral density is 0.831 g/cm2, T score -0.9 normal. Left Femoral Neck: Bone mineral density 0.789 g/cm2, T score -0.5, normal. Right Hip: Bone mineral density 0.882 g/cm2, T score -0.5, normal. Right Femoral Neck: Bone mineral density is 0.780 g/cm2, T score -0.6, normal. Fracture Risk Calculation (when applicable): 10-year fracture risk of a major osteoporotic fracture 8.3 percent and of a hip fracture 3.2 percent. (T score greater or equal to -1.0 to: NORMAL) (T score from -1.1 to -2.4: OSTEOPENIA) (T score less than or equal to -2.5: OSTEOPOROSIS) IMPRESSION: Osteopenia involving the lumbar spine. Follow-up guidelines as follows: Osteoporosis: Consider a repeat DEXA and Vertebral Fracture Assessment (VFA) exam in 2 years or sooner if medically necessary, to reassess this patient's status. Osteopenia: Consider a repeat DEXA in 2-3 years to reassess this patient's status, or if there is a new clinical indication. Normal: Consider a repeat DEXA in 5 years or sooner, or if there is a new clinical indication. All treatment decisions require clinical judgment and consideration of individual patient factors, including patient preferences, comorbidities, previous drug use, risk factors not captured in the FRAX model (e.g., frailty, falls, vitamin D deficiency, increased bone turnover, interval significant decline in bone density ) and possible under- or over-estimation of fracture risk by FRAX. In addition, the NOF Guide recommends that FDA-approved medical therapies be considered in postmenopausal women and men age >= 50 years with a: * Hip or vertebral (clinical or morphometric) fracture * T-score of <=-2.5 at the spine or hip * Ten-year fracture probability by FRAX of >= 3% for hip fracture or >=20% for major osteoporotic fracture. People with diagnosed cases of osteoporosis or at high risk for fracture should have regular bone mineral density tests. For patients eligible for Medicare, routine testing is allowed once every 2 years. The testing frequency can be increased to one year for patients who have rapidly progressing disease, those who are receiving or discontinuing medical therapy to restore bone mass, or have additional risk factors. Dictated by: Manuel Zayas M.D. on 02/26/2024 at 13:00 Approved by: Manuel Zayas M.D. on 02/26/2024 at 13:06
== END ==
PROVIDERS: PCP Family Medicine; Referring Provider Family Medicine; Visit Provider Family Medicine
DX: M81.0 Age-related osteoporosis without current pathological fracture (principal)
CPT/HCPCS: 77080

== ENCOUNTER → 2024-10-10 10:23 | Outpatient (CLI) | payer MEDICARE, OTHER, SELFPAY ==
--- NOTE | 2024-10-10 16:49 | ST.SWALLOW ---
Visit Care Team Role Provider Type Anderson Reid MD Attending Provider Physician Primary Care Provider Referring Provider Specialty: Family Practice Address: [address] [place] [address], [facility] Email: [email or web address] Modified Barium Swallow Study SUPERVISOR BENZENE REFINING Modified Barium Swallow Study Start: 10/10/24 14:16 Freq: Status: Active Protocol: Document 10/10/24 14:42 LNK (Rec: 10/10/24 16:48 LNK Desktop) Modified Barium Swallow Study Total Time Visit Start Time 11:00 Visit Stop Time 11:45 Total Visit Minutes [address] Reid; Pt requested a copy of this report be sent to Dr. Palacio, ENT Setting Setting Outpatient Care Patient Information Identification Type Name,Date of Patient History Pt was seen for a Modified Barium Swallow Study with c/o difficulty swallowing pills and solid foods and frequent coughing when he eats/drinks. Pt described a lot of phlegm in his throat as well as drooling. Pt noted he has a TIA approximately 10 years ago , but that his swallowing difficulty is new. Pt has a PMH that includes hypertension , BPH, anxiety, memory concerns and GERD. He began taking Nexium 2 weeks ago. Pt also reported that he has lost his voice recently. He denies any head/neck injuries or surgeries and other neurological diagnoses Subjective Observations Pt was seated in the fluoroscopy chair with directions and procedures described for him. He indicated he understood and agreed to proceed. Patient Positioning Position View Lateral Imaging Lateral View Textures Administered Trials Presented Thin Liquid via Spoon (IDDSI 0 ),Thin Liquid via Cup (IDDSI 0 ),Extremely Thick Liquid via Spoon (IDDSI 4) Barium Tablet No The IDDSI Framework Protocol: IDDSI.1 Oral Impairment Source: The Modified Barium Swallow Impairment Profile (MBSImP??) Lip Closure No labial escape Tongue Control During Bolus Hold Cohesive bolus between tongue to palatal seal Bolus Preparation/Mastication Timely & efficient chewing & mashing Bolus Transport/Lingual Motion Delayed initiation of tongue motion Oral Residue Trace residue lining oral structures Location Tongue Initiation of Pharyngeal Swallow Bolus head in valleculae Additional Oral Impairment Observations *OME and DKS were observed to be WNL. *Dentition natural and in good hygiene - missing upper and lower posterior teeth *Mastication observed with rotary chew pattern. *Adequate bolus formation, control and AP transition. *Velopharyngeal closure was WNL. Pharyngeal Impairment Source: The Modified Barium Swallow Impairment Profile (MBSImP??) Soft Palate Elevation No bolus between soft palate & pharyngeal wall Laryngeal Elevation Part.sup.move.thyroid cart/ part.approx.arytenoids to epiglot.petiole Anterior Hyoid Excursion Partial anterior movement Epiglottic Movement Partial inversion Laryngeal Vestibular Closure None; wide column air/contrast in laryngeal vestibule Pharyngeal Stripping Wave Absent Pharyngoesophageal Segment Opening Minimal distension/minimal duration; marked obstruction of flow Tongue Base Retraction Narrow column of contrast/air betwn tongue base & post. pharyngeal wall Pharyngeal Residue Majority of contrast within/on pharyngeal structures Location Diffuse (>3 areas) Additional Pharyngeal Impairment *Reduced base of tongue Observations retraction strength *Reduced hyolaryngeal elevation and movement *Significantly enlarged pharyngeal space *No Pharyngeal wall striping - reducing bolus control *Inconsistent epiglottal inversion varying from no inversion to partial inversion *Weak seal of the laryngeal vestibule with frequent aspiration varying from marques aspiration to aspiration of residual secretions *Aspiration is silent with delayed, weak an inconsistent cough response *Cued cough did not clear aspiration from trachea *Aspiration x6 observed *UES appears to be restricted in opening duration/extension resulting in multiple, minimally effective attempts to clear bolus to esophagus Safe swallow strategies attempted: chin tuck, partially effective with small amounts of liquid, Chin tuck with head turn thin liquids -> aspiration, chin tuck with head turn Marquez thick -> no aspiration Effortful swallow -> marques aspiration majority of bolus *Semisolid trial resulted in diffuse residual (> 50% 0f bolus) throughout the pharynx requiring cued swallows x8 in order to clear residual to valeculla only. Secretions did flow ro vocal fold level Pt is high aspiration risk - Solid trial and barium tablet not attempted due to aspiration risk Diet recommendations include: small amounts thin liquids ( water only) following thorough oral cleaning (Sandhu Free Water Protocol). Liquidized foods (e.g., thicker creamy soups) Pt has referral to Dr Palacio, ENT A/P View The IDDSI Framework Protocol: IDDSI.1 A/P View Observations Additional A-P Observations AP view was not attempted as pt posed aspiration risk Clinical Impressions Dysphagia Type Pharyngeal Findings Severe pharyngeal phase dysphagia Please review additional pharyngeal impairment observations above Pt reports loss of voice - VF paresis/paralysis cannot be ruled out Patient Appropriate for Therapy Yes: base of tongue exercies Recommendations Diet Liquids Order Mildly Thick (IDDSI 2) Diet Order Liquidised (IDDSI 3) Medication Recommendation As Tolerated,Whole in Carrier, Crushed in Carrier Additional Dietary Needs Reminders to Use Strategies Aspiration Precautions Recommended Precautions Upright at 90 Degrees,Frequent Rest Periods,Small Bites/Sips Additional Precautions chin tuck with head turn Treatment Plan Therapy Recommendations Outpatient Speech Therapy,Base of Tongue Exercises Recommended Referrals GI Consult,ENT Consult
== END ==
PROVIDERS: PCP Family Medicine; Referring Provider Family Medicine; Visit Provider Family Medicine
DX: R13.10 Dysphagia, unspecified (principal)
CPT/HCPCS: 74230; 92611

== ENCOUNTER → 2024-11-27 12:33 | Outpatient (CLI) | payer MEDICARE, OTHER, SELFPAY ==
[2024-11-27 14:31] LABS: Add Manual Diff / Slide Review NO; Basophils Absolute Auto 100 /uL (0-100); Basophils Percent Auto 0.8 % (0-2); Eosinophils Absolute Auto 100 /uL (0-450); Hemoglobin 12.8 g/dL (13.5-17.5); Lymphocytes Absolute Auto 1300 /uL (1100-4500); Lymphocytes Percent Auto 19.6 % (25-40); Mean Corpuscular HGB Conc 33.6 % (30-36); Mean Corpuscular Volume 83.4 fL (80-100); Monocytes Absolute Auto 500 /uL (0-900); Monocytes Percent Auto 7.1 % (3-14); Neutrophils Absolute Auto 4500 /uL (1500-7000); Neutrophils Percent Auto 70.5 % (50-75); Platelet Count 286 X10^3/uL (150-400); Red Blood Cell Count 4.56 X10^6/uL (4.5-5.9); Red Cell Distribution Width 17.5 % (11.6-14.8); White Blood Cell Count 6.4 X10^3/uL (4.5-11.0)
== END ==
PROVIDERS: Family Provider Family Medicine; PCP Family Medicine; Referring Provider Nurse Practitioner Family; Visit Provider Nurse Practitioner Family
DX: K21.9 Gastro-esophageal reflux disease without esophagitis (principal)
CPT/HCPCS: 36415; 85025

== ENCOUNTER → 2025-01-28 11:17 | Outpatient (CLI) | payer MEDICARE, OTHER, SELFPAY ==
[2025-01-28 12:13] LABS: Add Manual Diff / Slide Review NO; Hematocrit 38.4 % (41-53); Hemoglobin 12.9 g/dL (13.5-17.5); Lymphocytes Absolute Auto 1000 /uL (1100-4500); Mean Corpuscular HGB Conc 33.7 % (30-36); Mean Corpuscular Hemoglobin 28.6 PG (26-34); Mean Corpuscular Volume 85.0 fL (80-100); Platelet Count 239 X10^3/uL (150-400)
[2025-01-28 12:28] LABS: Microalbumi Creatinin Ratio Ur 66.0 ug/mg CR (<30)
[2025-01-28 12:40] LABS: HEMOLYSIS < 15 (0-50); Iron 60 ug/dL (49-181)
[2025-01-28 12:47] LABS: Alanine Aminotransferase 19 IU/L (<50); Albumin 4.0 g/dL (3.5-5.0); Albumin Globulin Ratio 1.4 (1.0-2.8); Alkaline Phosphatase 78 U/L (38-126); Blood Urea Nitrogen 19 mg/dL (9-20); Calcium 9.0 mg/dL (8.4-10.2); Carbon Dioxide 26 mmol/L (22-32); Chloride 105 mmol/L (98-107); Cholesterol 135 mg/dL (140-199); Estimated Glomerular Filt Rate > 60 mL/min (>60); Globulin 2.9 g/dL (1.7-4.1); Glucose 86 mg/dL (70-99); HDL Cholesterol 61 mg/dL (40-60); HEMOLYSIS < 15 (0-50); Potassium 4.4 mmol/L (3.4-5.1); Sodium 140 mmol/L (137-145); Total Protein 6.9 g/dL (6.3-8.2); Triglycerides 48 mg/dL (35-150)
[2025-01-28 12:54] LABS: Percent Iron Saturation 26 % (20-50); Total Iron Binding Capacity 230 ug/dL (261-462); Transferrin 170 mg/dL (206-381)
[2025-01-28 13:13] LABS: TSH w/ Reflex to FT4 1.72 uIU/mL (0.47-4.68)
[2025-01-28 13:18] LABS: Ferritin 71 ng/mL (18-464)
== END ==
PROVIDERS: Family Provider Family Medicine; PCP Family Medicine; Referring Provider Family Medicine; Visit Provider Family Medicine
DX: D64.9 Anemia, unspecified (principal); I10 Essential (primary) hypertension; M54.9 Dorsalgia, unspecified; G89.29 Other chronic pain; G45.9 Transient cerebral ischemic attack, unspecified; R26.89 Other abnormalities of gait and mobility; Z12.5 Encounter for screening for malignant neoplasm of prostate
CPT/HCPCS: 36415; 80053; 80061; 82043; 82172; 82570; 82728; 83540; 83550; 84443; 85025; G0103

== ENCOUNTER → 2025-02-11 12:47 | Outpatient (CLI) | payer MEDICARE, OTHER, SELFPAY ==
[2025-02-11 13:58] LABS: Influenza A - CEPHEID Flu A NEGATIVE (NEGATIVE); Influenza B - CEPHEID Flu B NEGATIVE (NEGATIVE)
[2025-02-11 14:00] LABS: COVID-19 CEPHEID 4-PLEX PCR Negative (Negative)
== END ==
PROVIDERS: PCP Family Medicine; Visit Provider Family Medicine
DX: R05.1 Acute cough (principal)
CPT/HCPCS: 87637